=== PATIENT | male | born 1950 | race Two or more races ===

== ENCOUNTER 2019-09-05 12:02 | Emergency (ER) | payer OTHER ==
[~2019-09-05] VITALS: Ht 170.2 cm; Wt 93.9 kg
[~2019-09-05 12:02] MED LIST: HUMALOG MIX 75/10 ML
[2019-09-05] MEDS ORDERED: PLAVIX75 MG (12:53)
[2019-09-05] MEDS ORDERED: ATACAND32 MG (12:53)
[2019-09-05] MEDS ORDERED: AFEDITAB CR60 MG (12:54)
[2019-09-05] MEDS ORDERED: PEPCID AC20 MG (17:00)
[2019-09-05] MEDS ORDERED: TOPROL XL50 M1 (17:00)
== END 2019-09-05 21:54 | disposition home or self-care (01) ==
LOC: ER 12:02
DX: K29.60 Other gastritis without bleeding (principal)